=== PATIENT | female | born 1980 | race Caucasian/White ===

== ENCOUNTER → 2017-08-03 | Outpatient (CLI) | payer OTHER ==
[2014-08-28 16:46] VITALS: BMI 41.8
[~2017-08-03] MED LIST: ALB18R INH; AMOX-556 PO; AMOX-559 PO; AZIT-1 PO; AZIT-18 PO; Aspirin PO; BENZ100C4 PO; CEFU250S6 PO; CIPR-344 PO; DOXY-179 PO; DOXY-252 PO; FLUC100T39 PO; FLUT16SP19 NS; HYDR-389 PO; HYDR-4309 PO; LOR5/325 PO; MET60GMPT TOP; METR-160 PO; NO ROUTINE MEDS; OMEP-137 PO; ONDA4TAB PO; OXYC-865 PO; POLY10DR22 OP; PRED-1 PO; PRED20TA6 PO; PROM-110 PO; QUE100 PO; ROBC PO; Work Note
--- NOTE | 2017-08-03 14:22 | EKG ---
FACILITY: [facility] PATIENT NAME: DENIS MCARTHUR : [id number] MR: [id number] V: [id number] EXAM DATE: ORDERING PHYSICIAN: KARI AN TECHNOLOGIST: CARMEN CURTIS Test Reason : TACHYCARDIA Blood Pressure : / mmHG Vent. Rate : 085 BPM Atrial Rate : 085 BPM P-R Int : 166 ms QRS Dur : 090 ms QT Int : 380 ms P-R-T Axes : 055 004 026 degrees QTc Int : 452 ms Normal sinus rhythm Normal ECG No previous ECGs available Confirmed by KARI AN ([id number] on 08/04/2017 8:37:58 AM Referred By: Confirmed By:KARI AN
== END ==
LOC: LAB 09:57
PROVIDERS: ATTEND Emergency Medicine
DX: R55 Syncope and collapse (principal)
CPT/HCPCS: 36415; 83880; 84484; 85379; 93005

== ENCOUNTER → 2017-08-08 | Outpatient (CLI) | payer OTHER ==
[2014-08-28 16:46] VITALS: BMI 41.8
[~2017-08-08] MED LIST changes: +BUPR-472 PO; +GOLYTE PO; +META800T18 PO; +OMEP40CA48 PO
== END ==
LOC: LAB 11:51
PROVIDERS: ATTEND Emergency Medicine
DX: M79.1 Myalgia (principal)
CPT/HCPCS: 36415; 82306; 82550; 83540; 83550

== ENCOUNTER 2017-09-06 00:25 | Day surgery (SDC) | payer OTHER ==
[2014-08-28 16:46] VITALS: Ht 160 cm; Wt 96.6 kg
[~2017-09-06] VITALS: Ht 160 cm; Wt 96.6 kg
[2017-09-06] MEDS ORDERED: PROPOFOL EMUL(*) 10MG/ML 20 ML 40 ML ONE (07:52)
[2017-09-06 07:54] VITALS: BP 107/89
[2017-09-06] MEDS ORDERED: MIDAZOLAM 2 MG/2 ML VIAL IVP ONE (08:00)
[2017-09-06] MEDS ORDERED: LIDOCAINE/SOD BICARB 8.4% SYR ID ONE (08:00)
[2017-09-06] MEDS ORDERED: NORMOSOL R SOLN(*) 1000 ML BAG 1,000 ML IV PRN (08:00)
[2017-09-06 10:19] VITALS: BP 99/62
--- NOTE | 2017-09-06 10:24 | Short(Outpt) Discharge Summary ---
Discharge Summary Reason for Hosp/Final Diag: (1) Family history of malignant neoplasm of gastrointestinal tract Hospital Course & Plan: Colonoscopy completed without problems. Departure Discharge to: Home, Self Care Discharge Instructions Home Meds Active Scripts Bupropion Hcl (WELLBUTRIN XL) 150 Mg Tab.er.24h, 150 MG PO QDAY, #15 TAB Prov:KARI AN MD 08/08/17 Metaxalone (SKELAXIN) 800 Mg Tablet, 800 MG PO DAILY, #30 TAB Prov:KARI AN MD 08/08/17 Peg/Electrolytes (GOLYTELY SOLUTION) 4,000 Ml Soln, 1 GAL PO ONCE, #1 GAL 0 Refills Prov:JESSENIA MARRERO MD 08/07/17 Omeprazole (OMEPRAZOLE) 40 Mg Capsule.dr, 1 CAP PO QDAY, #60 CAP 6 Refills Prov:JESSENIA MARRERO MD 08/07/17 Diet: Regular Activity: As Tolerated Special Instructions: Your colonoscopy was completed without any problems and your prep was excellent (Good Job!!). I didn't find any polyps, cancers, or other abnormalities. I recommend that you have another colonoscopy in 5 years for continued screening due to your family history. JESSENIA MARRERO MD Sep 06, 2017 10:24
[2017-09-06 10:25] VITALS: BP 96/62
[2017-09-06 10:52] VITALS: BP 101/69
[2017-09-06 10:59] VITALS: BP 91/74
[2017-09-06 11:01] VITALS: BP 95/73
== END 2017-09-06 10:19 | disposition home or self-care (01) ==
LOC: OR 00:25
PROVIDERS: ATTEND Surgery
DX: Z12.11 Encounter for screening for malignant neoplasm of colon (principal); Z80.0 Family history of malignant neoplasm of digestive organs
CPT/HCPCS: 00812; 45378; 81025; J2704